=== PATIENT | female | born 1980 | race Caucasian/White ===

== ENCOUNTER 2018-04-17 10:46 | Emergency (ER) | payer MEDICAID ==
[2018-04-17 12:08] LABS: BILIRUBIN,URINE NEGATIVE (NEGATIVE); GLUCOSE, URINE (UA) NEGATIVE (NEGATIVE); KETONES,URINE (UA) NEGATIVE (NEGATIVE); LEUKOCYTE ESTERASE, URINE NEGATIVE (NEGATIVE); NITRITE,URINE NEGATIVE (NEGATIVE); OCCULT BLOOD,URINE NEGATIVE (NEGATIVE); PH,URINE 7.5 PH (5.0-7.5); PROTEIN,URINE NEGATIVE (NEGATIVE); UROBILINOGEN,URINE 0.2 (NORMAL) E.U./dL (NORMAL)
[2018-04-17 12:12] LABS: CLARITY,URINE CLEAR (CLEAR); HCG UR QUAL NEGATIVE
--- NOTE | 2018-04-17 12:14 | ED Physician Documentation ---
History of Present Illness - Stated complaint Stated Complaint: FEMALE - Chief complaint Chief Complaint: General - History obtained from History obtained from: Patient - History of Present Illness Timing: Other (About a month ago she took a course of antibiotics, she does not know what for about a week for an abscess on her back. 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 : None HEENT: None Psych: None Musculoskeletal: None Derm: None Other Past Medical History: Was diagnosed with fatty liver - Past Surgical History Past Surgical History: No - Present Medications Home Medications: Ambulatory Orders Medication Instructions Recorded Confirmed Metronidazole [Flagyl] 500 mg PO BID #14 tablet 04/17/18 - Allergies Allergies/Adverse Reactions: Allergies Allergy/AdvReac Type Severity Reaction Status Date / Time Penicillins Allergy Respiratory Verified 04/17/18 10:54 Sulfa (Sulfonamide Allergy Hives Verified 04/17/18 10:54 Antibiotics) - Social History Does the pt smoke?: No Smoking Status: Former smoker Does the pt drink ETOH?: Yes Does the pt have substance abuse?: No Substance Use and Type: Marijuana - Immunizations Immunizations are current?: Yes - POLST Patient has POLST: No PD ED PE NORMAL - Vitals Vital signs reviewed: Yes - General General: Alert and oriented X 3, No acute distress - Abdomen Abdomen: Normal bowel sounds, Soft, Non tender - Female Female : 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 No bimanual tenderness.) - Back Back: No CVA TTP, No spinal TTP - Neuro Neuro: Alert and oriented X 3, Normal speech Results - Vitals Vitals: Vital Signs - 24 hr 04/17/18 04/17/18 10:52 13:13 Temperature 36.5 C Heart Rate 86 68 Respiratory 18 16 Rate Blood Pressure 142/77 H 132/87 H O2 Saturation 100 96 Oxygen O2 Source Room air - Labs Labs: Microbiology 04/17/18 12:30 Wet Prep - Final Vaginal Laboratory Tests 04/17/18 11:44 Urine Color YELLOW Urine Clarity CLEAR Urine pH 7.5 Ur Specific [place] 1.015 Urine Protein NEGATIVE Urine Glucose (UA) NEGATIVE Urine Ketones NEGATIVE Urine Occult Blood NEGATIVE Urine Nitrite NEGATIVE Urine Bilirubin NEGATIVE Urine Urobilinogen 0.2 (NORMAL) Ur Leukocyte Esterase NEGATIVE Ur Microscopic Review NOT INDICATED Urine Culture Comments NOT INDICATED Urine HCG, Qual NEGATIVE PD MEDICAL DECISION MAKING - Sepsis Event Vital Signs: Vital Signs - 24 hr 04/17/18 04/17/18 10:52 13:13 Temperature 36.5 C Heart Rate 86 68 Respiratory 18 16 Rate Blood Pressure 142/77 H 132/87 H O2 Saturation 100 96 Oxygen O2 Source Room air Departure - Departure Disposition: Home, Self Care Clinical Impression: Bacterial vaginosis Condition: Good Record reviewed to determine appropriate education?: Yes Instructions: ED Vaginosis Bacterial Prescriptions: Metronidazole [Flagyl] 500 mg PO BID #14 tablet Comments: Call your doctor to arrange a follow-up appointment, make the next available appointment. In the interim, return anytime if worse or if new symptoms develop. Your blood pressure was elevated today on check into the emergency department. This does not mean that you have hypertension, it is a common phenomenon to come to the emergency department and have elevated blood pressure. I recommend that you see your primary care physician within the week to have it rechecked when you are feeling better.
[2018-04-17 13:13] VITALS: BP 132/87
== END 2018-04-17 13:32 | disposition home or self-care (01) ==
LOC: ED 10:46
DX: N76.0 Acute vaginitis (principal); R03.0 Elevated blood-pressure reading, without diagnosis of hypertension; Z87.891 Personal history of nicotine dependence
CPT/HCPCS: 81001; 81003; 81025; 87086; 87210; 87491; 87591; 99283

== ENCOUNTER 2018-04-29 09:41 | Emergency (ER) | payer MEDICAID ==
[2018-04-29 10:19] VITALS: BP 131/74
[2018-04-29 11:51] LABS: HCG UR QUAL NEGATIVE
[2018-04-29] MEDS ORDERED: FLUCONAZOLE 100 MG TABLET PO STA (12:21)
[2018-04-29] MEDS ORDERED: metroNIDAZOLE 250 MG TABLET PO STA (12:21)
[2018-04-29 12:22] LABS: BILIRUBIN,URINE NEGATIVE (NEGATIVE); CLARITY,URINE CLEAR (CLEAR); GLUCOSE, URINE (UA) NEGATIVE (NEGATIVE); KETONES,URINE (UA) NEGATIVE (NEGATIVE); LEUKOCYTE ESTERASE, URINE NEGATIVE (NEGATIVE); NITRITE,URINE NEGATIVE (NEGATIVE); OCCULT BLOOD,URINE NEGATIVE (NEGATIVE); PROTEIN,URINE NEGATIVE (NEGATIVE); UROBILINOGEN,URINE 0.2 (NORMAL) E.U./dL (NORMAL)
--- NOTE | 2018-04-29 12:24 | ED Physician Documentation ---
PD HPI FEMALE - Stated complaint Stated Complaint: FEMALE - Chief complaint Chief Complaint: General - History obtained from History obtained from: Patient - History of Present Illness Timing - onset: Yesterday Timing - details: Gradual onset, Still present Associated symptoms: Vaginal discharge Similar symptoms before: Work up / diagnostics, Treatment Recently seen: Emergency Dept - Additional information Additional information: Patient is a 37 year old female presenting to the emergency department for vaginal discharge. patient was seen recently and diagnosed with bv. patient states that she responded originally to the antibiotics but the symptoms came back after patient changed her detergents. 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 : None HEENT: None Psych: None Musculoskeletal: None Derm: None - Past Surgical History Past Surgical History: No - Present Medications Home Medications: Ambulatory Orders Medication Instructions Recorded Confirmed Metronidazole [Flagyl] 500 mg PO BID 7 Days tablet 04/29/18 - Allergies Allergies/Adverse Reactions: Allergies Allergy/AdvReac Type Severity Reaction Status Date / Time Penicillins Allergy Respiratory Verified 04/29/18 10:19 Sulfa (Sulfonamide Allergy Hives Verified 04/29/18 10:19 Antibiotics) - Social History Does the pt smoke?: No Smoking Status: Former smoker Does the pt drink ETOH?: Yes Does the pt have substance abuse?: No - Immunizations Immunizations are current?: Yes - POLST Patient has POLST: No PD ED PE NORMAL - Vitals Vital signs reviewed: Yes - General General: Alert and oriented X 3, No acute distress - HEENT HEENT: Atraumatic, Moist mucous membranes - Cardiac Cardiac: RRR - Respiratory Respiratory: No respiratory distress - Abdomen Abdomen: Soft, Non tender, Non distended - Female Female : Pt declined - Derm Derm: Normal color, Warm and dry - Extremities Extremities: No deformity - Neuro Neuro: Alert and oriented X 3 Eye Opening: Spontaneous Motor: Obeys Commands Verbal: Oriented GCS Score: 15 Results - Vitals Vitals: Vital Signs - 24 hr 04/29/18 10:13 Temperature 36.3 C L Heart Rate 73 Respiratory 18 Rate Blood Pressure 131/74 H O2 Saturation 99 Oxygen O2 Source Room air - Labs Labs: Laboratory Tests 04/29/18 11:30 Ur Specific [place] 1.020 Urine HCG, Qual NEGATIVE PD MEDICAL DECISION MAKING - ED course Complexity details: reviewed old records, reviewed results, re-evaluated patient , considered differential, d/w patient ED course: Patient was seen and examined at bedside. patient was well appearing in no distress. previous records were reviewed and patient was negative for gc and chlamydia. Patient did not want another pelvic exam at this time. Patient required no further work up and was stable for discharge with outpatient follow up. - Sepsis Event Vital Signs: Vital Signs - 24 hr 04/29/18 10:13 Temperature 36.3 C L Heart Rate 73 Respiratory 18 Rate Blood Pressure 131/74 H O2 Saturation 99 Oxygen O2 Source Room air Departure - Departure Disposition: Home, Self Care Clinical Impression: Bacterial vaginosis Condition: Good Instructions: ED Vaginosis Bacterial Follow-Up: SHERMAN HANSON [Primary Care Provider] - Within 3 Days Prescriptions: Metronidazole [Flagyl] 500 mg PO BID 7 Days tablet Comments: Your symptoms today are likely secondary to bacterial vaginosis. your other tests from the previous visit were otherwise negative. you will be on flagyl again for the next 7 days. you should follow up with your doctor once you establish primary care.
== END 2018-04-29 12:34 | disposition home or self-care (01) ==
LOC: ED 09:41
DX: N76.0 Acute vaginitis (principal)
CPT/HCPCS: 81003; 81025; 99283; A9270; 81001; 87086